=== PATIENT | female | born 1930 | race Caucasian/White ===

== ENCOUNTER → 2018-03-09 | Day surgery (SDC) | payer OTHER ==
[~2018-03-09] VITALS: Ht 165.1 cm; Wt 70.3 kg
[~2018-03-09] MED LIST: AMLODIPINE BESYL5 MG PO; AVAPRO150 M1 PO; GABAPENTIN100 M2 PO; GOOD NEIGHBOR150 MG PO; IPRATROPIUM BRO15 ML INH; PRAVASTATIN SOD40 MG PO; PROVENTIL HFA6.7 GM INH; SERTRALINE HYDR25 MG PO; SYMBICORT AER 160 INH
--- NOTE | ~2018-03-09 | PROC NOTE ---
[place], [place] PROCEDURE NOTE [facility] [id number] UNIT #: [id number] ROOM: DOCTOR: LILIBETH COLEMAN MD,KALYN BIRTHDATE: 34 DOS: 03/09/2018 PROCEDURE: Bronchoscopy as an outpatient. PREOPERATIVE DIAGNOSES: The patient with persistent coughing, wheezing, not resolving with current maximal medical therapy. POSTOPERATIVE DIAGNOSES: Removal of the mucus plug from the airways bilaterally, no endobronchial obstructive lesions. PROCEDURE DESCRIPTION: Informed consent obtained for the patient. The patient brought to the OR and placed in supine position. Conscious sedation administered by the Anesthesia Department. After achieving proper sedation, airway introduced into the mouth. Bronchoscope advanced to the airway into laryngeal area. Epiglottis and vocal cords were seen. The vocal cord were noted yellowish in color moving symmetrically with movements. The bronchoscope advanced to the tracheal lumen noted small amount of secretion for the patient, which appeared to be mucoid in the tracheal lumen suctioned out. Similar secretion present in bronchial tree bilaterally. All secretions suctioned out clear with normal saline wash, sent for cultures. Procedure well tolerated by the patient without difficulty. Postoperative findings were discussed with the patient's family members in detail. No change in the treatment otherwise will be necessary. KALYN MCELROY MD CM:PROCNOTE:PROCEDURE NOTE [id number] KALYN COLEMAN MD
[2018-03-09 08:30] VITALS: BP 163/94
[2018-03-09 09:02] VITALS: BP 164/95
[2018-03-09 09:17] VITALS: BP 116/50
[2018-03-09 09:32] VITALS: BP 158/78
[2018-03-10 20:12] LABS: ACID FAST SPEC PROCESSING Concentration (.)
== END | disposition home or self-care (01) ==
LOC: SDC 03-05 08:00
PROVIDERS: Internal Medicine Critical Care Medicine
DX: J98.09 Other diseases of bronchus, not elsewhere classified (principal); I10 Essential (primary) hypertension; J44.9 Chronic obstructive pulmonary disease, unspecified; F41.9 Anxiety disorder, unspecified; Z82.49 Family history of ischemic heart disease and other diseases of the circulatory system; J40 Bronchitis, not specified as acute or chronic

== ENCOUNTER → 2018-11-18 | Outpatient (CLI) | payer OTHER | END | disposition home or self-care (01) | LOC: RAD 13:01 | DX: M25.562 Pain in left knee (principal); M25.561 Pain in right knee; G89.29 Other chronic pain ==

== ENCOUNTER → 2019-01-07 | Outpatient (CLI) | payer OTHER | END | disposition home or self-care (01) | LOC: ORTHO 01:39 → RAD 01:39 → ORTHO 19:33 | DX: J44.9 Chronic obstructive pulmonary disease, unspecified (principal); R30.0 Dysuria; G89.29 Other chronic pain ==

== ENCOUNTER → 2019-07-11 | Outpatient (CLI) | payer OTHER | END | disposition home or self-care (01) | LOC: RAD 08:53 | DX: J44.9 Chronic obstructive pulmonary disease, unspecified (principal); R30.0 Dysuria; R23.2 Flushing ==

== ENCOUNTER → 2019-09-19 | Outpatient (CLI) | payer OTHER | END | disposition home or self-care (01) | LOC: ORTHO 01:04 | DX: M17.12 Unilateral primary osteoarthritis, left knee (principal); M17.11 Unilateral primary osteoarthritis, right knee ==